=== PATIENT | male | born 1980 | race Hispanic/Latino ===

== ENCOUNTER 2024-05-02 07:56 | Emergency (ER) | payer SELFPAY ==
[~2024-05-02] VITALS: Ht 182.9 cm; Wt 90.7 kg
[2024-05-02 08:01] VITALS: RESP 18; TEMP 97.3
[2024-05-02 10:00] VITALS: PULSE 77
[2024-05-02] MEDS: ACETAMINOPHEN 325 MG TAB PO STA (10:13)
[2024-05-02 10:15] VITALS: BP 149/86; PULSE 100; RESP 16; O2SAT 100
== END 2024-05-02 09:40 | disposition home or self-care (01) ==
LOC: ER 08:02
DX: S00.83XA Contusion of other part of head, initial encounter (principal); W01.0XXA Fall on same level from slipping, tripping and stumbling without subsequent striking against object, initial encounter; Y92.89 Other specified places as the place of occurrence of the external cause
CPT/HCPCS: 70450; 72125; 99283